=== PATIENT | female | born 1990 | race Caucasian/White ===

== ENCOUNTER 2017-06-21 22:32 | Emergency (ER) | payer OTHER ==
[2017-06-21 22:38] VITALS: BP 126/79
== END 2017-06-22 00:40 | disposition home or self-care (01) ==
LOC: ED 22:32
DX: S91.331A Puncture wound without foreign body, right foot, initial encounter (principal); W26.8XXA Contact with other sharp object(s), not elsewhere classified, initial encounter; Y93.89 Activity, other specified; Y99.8 Other external cause status; Y92.89 Other specified places as the place of occurrence of the external cause
CPT/HCPCS: 90715

== ENCOUNTER 2018-06-01 19:49 | Emergency (ER) | payer OTHER ==
[~2018-06-01] VITALS: Ht 157.5 cm; Wt 48.1 kg
[2018-06-01 20:02] VITALS: Ht 157.5 cm; Wt 48.1 kg
[2018-06-01 22:04] VITALS: BP 129/87
== END 2018-06-01 22:04 | disposition home or self-care (01) ==
LOC: ED 19:49
DX: H10.9 Unspecified conjunctivitis (principal)

== ENCOUNTER 2019-01-24 18:52 | Emergency (ER) | payer OTHER ==
[~2019-01-24] VITALS: Ht 157.5 cm; Wt 49.0 kg
[2019-01-24 19:04] VITALS: Ht 157.5 cm; Wt 49.0 kg
[2019-01-24 22:36] LABS: BASOPHIL % 0.7 % (0-2); PLATELET COUNT 275 x10^3mcL (130-400); RED CELL DISTRIBUTION WIDTH 12.9 % (11.5-14.5)
[2019-01-24 22:47] LABS: CALCIUM 8.6 mg/dL (8.5-10.1); CARBON DIOXIDE 26.6 mmol/L (21-32); CHLORIDE SERUM 102 mmol/L (98-107); CREATININE SERUM 0.7 mg/dL (0.6-1.0); GFR1 > 60 mL/min; GLUCOSE SERUM 93 mg/dL (74-106); POTASSIUM SERUM 3.7 mmol/L (3.5-5.1); SODIUM SERUM 137 mmol/L (136-145)
[2019-01-24 22:52] LABS: ALBUMIN 3.7 g/dL (3.4-5.0); ALKALINE PHOSPHATASE 56 U/L (46-116); ALT/SGPT 19 U/L (14-59); AST/SGOT 16 U/L (15-37); BILIRUBIN TOTAL 0.2 mg/dL (0.20-1.00); TOTAL PROTEIN, SERUM 7.8 g/dL (6.4-8.2)
[2019-01-24 23:30] VITALS: BP 113/68
== END 2019-01-24 23:30 | disposition home or self-care (01) ==
LOC: ED 18:52
PROVIDERS: Emergency Medicine
DX: R00.2 Palpitations (principal); F41.9 Anxiety disorder, unspecified; R42 Dizziness and giddiness; R51 Headache
CPT/HCPCS: J7030; Q0092